=== PATIENT | male | born 1950 | race Caucasian/White ===

== ENCOUNTER 2021-02-24 09:23 | Emergency (ER) | payer MEDICAID ==
[~2021-02-24] VITALS: Ht 185.4 cm; Wt 77.3 kg
[2021-02-24 11:21] LABS: BASOPHILS # (AUTO) 0.1 X10'3 (0-0.2); BASOPHILS % (AUTO) 0.8 % (0-1); EOSINOPHILS # (AUTO) 0.1 X10'3 (0-0.9); EOSINOPHILS % (AUTO) 1.5 % (0-6); HEMATOCRIT 37.9 % (42.0-52.0); LYMPHOCYTES # (AUTO) 0.8 X10'3 (1.1-4.8); LYMPHOCYTES % (AUTO) 11.1 % (21-51); MEAN CORPUSCULAR HEMOGLOBIN 32.8 PG (27.0-31.0); MEAN CORPUSCULAR HGB CONC 34.3 g/dL (33.0-36.5); MEAN CORPUSCULAR VOLUME 95.5 FL (78-98); MONOCYTES # (AUTO) 0.7 X10'3 (0-0.9); MONOCYTES % (AUTO) 9.3 % (2-12); NEUTROPHILS # (AUTO) 5.9 X10'3 (1.8-7.7); NEUTROPHILS % (AUTO) 77.3 % (42-75); PLATELET COUNT 225 X10'3 (140-440); RED BLOOD COUNT 3.97 X10'6 (4.70-6.10); RED CELL DISTRIBUTION WIDTH 13.3 % (11.5-14.5); WHITE BLOOD COUNT 7.6 X10'3 (4.5-11.0)
[2021-02-24 11:27] LABS: D-DIMER 3.94 MG/L FEU (0-0.50)
[2021-02-24 11:31] LABS: ALANINE AMINOTRANSFERASE 23 U/L (12-78); ALBUMIN 4.2 G/DL (3.4-5.0); ALBUMIN/GLOBULIN RATIO 1.2 (1.1-1.5); ALKALINE PHOSPHATASE 52 IU/L (46-116); ANION GAP 10 (8-16); ASPARTATE AMINO TRANSFERASE 24 U/L (10-37); BILIRUBIN,TOTAL 0.5 MG/DL (0.1-1.0); BLOOD UREA NITROGEN 8 MG/DL (7-18); BUN/CREATININE RATIO 8.2 (5.4-32.0); CALCIUM 9.5 MG/DL (8.5-10.1); CHLORIDE 100 MMOL/L (99-107); CREATININE 0.98 MG/DL (0.60-1.10); GLUCOSE 97 MG/DL (70-104); POTASSIUM 3.4 MMOL/L (3.5-5.1); SODIUM 138 MMOL/L (135-145); TOTAL CARBON DIOXIDE 28.4 MMOL/L (24-32); TOTAL PROTEIN 7.7 G/DL (6.4-8.2); eGFR 75 ML/MIN
[2021-02-24] MEDS ORDERED: iohexol 300mg/ml 100ml inj. ONE (11:58)
--- NOTE | 2021-02-24 12:03 | NUR ---
PT TO CT VIA WHEELCHAIR
[2021-02-24 12:31] VITALS: BP 152/76
[2021-02-24] MEDS ORDERED: azithromycin/NS 500mg/250ml 250 ML IV ONE (13:35)
[2021-02-24] MEDS ORDERED: normal saline 1000ml 1,000 ML IV ONE (13:40)
[2021-02-24] MEDS ORDERED: levoFLOXACIN-Levaquin 500mg/D5 100 ML IV SCH (13:55)
[2021-02-24] MEDS ORDERED: levoFLOXACIN-Levaquin 500mg/D5 100 ML IV ONE (13:59)
[2021-02-24 14:05] LABS: C-REACTIVE PROTEIN 0.05 MG/DL (0.0-0.5)
[2021-02-24] MEDS ORDERED: iohexol 350MG/ML 100ml bottle IV ONE (14:48)
[2021-02-24] MEDS ORDERED: DOXY100C2 PO (16:22)
[2021-02-24] MEDS ORDERED: AMOX-117 PO (16:22)
[2021-02-24] MEDS ORDERED: AMOX-422 PO (16:25)
[2021-02-24] MEDS ORDERED: DOXY-243 PO (16:25)
== END 2021-02-24 19:09 | disposition home or self-care (01) ==
LOC: ER 09:23
DX: J18.9 Pneumonia, unspecified organism (principal); Z20.822 Contact with and (suspected) exposure to COVID-19; R07.89 Other chest pain; I10 Essential (primary) hypertension; F41.9 Anxiety disorder, unspecified; F32.9 Major depressive disorder, single episode, unspecified; Z90.49 Acquired absence of other specified parts of digestive tract; Z90.89 Acquired absence of other organs; Z79.2 Long term (current) use of antibiotics
CPT/HCPCS: 36415; 71046; 71260; 71275; 80053; 83605; 84145; 84484; 85025; 85379; 86140; 87040; 87635; 93005; 96365; 96368; 99285; C9803; J0456; J1956; J7030; Q9967